=== PATIENT | female | born 1980 | race Caucasian/White ===

== ENCOUNTER → 2016-07-22 | Outpatient (CLI) | payer BC ==
[2016-07-22 15:25] LABS: CH 29.8; CHCM 31.8; HCT 42.4 % (34.0-46.0); HDW 1.92; HGB 13.5 gm/dL (11.4-16.0); MCH 29.9 pg (25.0-35.0); MCHC 31.8 g/dL (31.0-37.0); Mean Platelet Volume 6.1; RBC 4.51 m/uL (3.80-5.40); RDW 12.1 % (11.5-15.5); WBC 12.6 k/uL (3.8-10.6)
[2016-07-22 15:41] LABS: Prothrombin Time 10.1 sec (9.0-12.0)
[2016-07-22 15:57] LABS: Partial Thromboplastin Time 190.8 sec (22.0-30.0)
== END | disposition home or self-care (01) ==
LOC: LABWHC1 14:37
PROVIDERS: ATTEND Orthopaedic Surgery Orthopaedic Surgery of the Spine
DX: M48.02 Spinal stenosis, cervical region (principal)
CPT/HCPCS: 36415; 85027; 85610; 85730

== ENCOUNTER → 2018-06-01 | Outpatient (CLI) | payer BC ==
--- NOTE | 2018-06-01 13:42 | US ---
EXAMINATION TYPE: US kidneys/renal and bladder DATE OF EXAM: 06/01/2018 COMPARISON: NONE CLINICAL HISTORY: R10.9 ABD PAIN. EXAM MEASUREMENTS: Right Kidney: 11.7 x 5.1 x 4.5 cm Left Kidney: 12.3 x 5.5 x 5.1 cm Post Void Residual Volume: 11.3 mL Right Kidney: No hydronephrosis or masses seen Left Kidney: No hydronephrosis or masses seen Bladder: wnl Bilateral Jets seen: Yes Normal Post Void Residual: Yes There is no evidence for hydronephrosis at this point in time. No nephrolithiasis is seen. No merlyn s are identified. The urinary bladder is anechoic. Bilateral ureteral jets are seen. ? accessory spleen noted = 1.3 x 1.3 x 1.3 cm IMPRESSION: No significant abnormality appreciated. report given to James at office at time of exam.
== END | disposition home or self-care (01) ==
LOC: RADUSWWP 12:49
PROVIDERS: ATTEND Family Medicine
DX: R10.9 Unspecified abdominal pain (principal)
CPT/HCPCS: 76770

== ENCOUNTER 2018-06-07 07:08 | Emergency (ER) | payer BC ==
[2018-06-07 07:14] VITALS: RESP 20
[2018-06-07 07:40] LABS: Appearance,Urine Cloudy (Clear); Bacteria,Urine Moderate /hpf; Bilirubin,Urine Negative (Negative); Blood,Urine Trace (Negative); Color,Urine Yellow; Glucose,Urine (UA) Negative (Negative); Ketones,Urine Negative (Negative); Leukocyte Esterase,Urine Moderate (Negative); Mucus,Urine Moderate /hpf; Nitrite,Urine Negative (Negative); PH, Urine 6.5 (5.0-8.0); Protein,Urine 1+ (Negative); RBC,Urine 5 /hpf (0-5); Specific Gravity,Urine 1.017 (1.001-1.035); Squamous Epithelial Cell,Urine 10 /hpf (0-4); Urobilinogen,Urine <2.0 mg/dL (<2.0)
[2018-06-07] MEDS ORDERED: SODIUM CHLORIDE 0.9% 1,000 ML IV STA (07:46)
[2018-06-07] MEDS ORDERED: ONDANSETRON 4 MG/2 ML VIAL IVP STA (07:46)
[2018-06-07] MEDS ORDERED: MORPHINE SULFATE 4 MG/ML SYRINGE IV STA (07:46)
--- NOTE | 2018-06-07 08:03 | ED ---
Abdominal Pain HPI - General Chief Complaint: Back Pain/Injury Stated Complaint: back pain Time Seen by Provider: 06/07/18 07:43 Source: patient, RN notes reviewed, old records reviewed Mode of arrival: ambulatory Limitations: no limitations - History of Present Illness Initial Comments: This is a 37-year-old female the ER for evaluation of right-sided back pain right flank pain. Denies significant medical history no change in medications. Patient has no modifying factors for pain at home. Denies history of kidney stone, was recently seen by family doctor for similar complaint is that she had a recent ultrasound unknown results. Patient denies dysuria positive urine, no fevers. No nausea vomiting or diarrhea. Just pain in the back. Otherwise patient has no new complaints. No prior history of similar complaint MD Complaint: flank pain (Right) -: week(s) Location: RLQ, R flank Radiation: R flank Migration to: no migration Severity: moderate Severity scale (1-10): 3 Quality: cramping, sharp Consistency: constant Improves With: nothing Worsens With: nothing Associated Symptoms: nausea Treatments Prior to Arrival: NSAIDs - Related Data Home Medications Medication Instructions Recorded Confirmed Ibuprofen [Motrin] 800 mg PO Q6H PRN 06/07/18 06/07/18 Medroxyprogesterone Acetate 150 mg IM Q90D 06/07/18 06/07/18 [Depo-Provera] Allergies Allergy/AdvReac Type Severity Reaction Status Date / Time prochlorperazine Allergy Anaphylaxis Verified 06/07/18 07:33 [From Compazine] Review of Systems ROS Statement: Those systems with pertinent positive or pertinent negative responses have been documented in the HPI. ROS Other: All systems not noted in ROS Statement are negative. Past Medical History Past Medical History: No Reported History History of Any Multi-Drug Resistant Organisms: None Reported Past Surgical History: Section, Orthopedic Surgery Additional Past Surgical History / Comment(s): neck surgery 2016 Past Psychological History: Anxiety Smoking Status: Current every day smoker Past Alcohol Use History: Occasional Past Drug Use History: None Reported General Exam Limitations: no limitations General appearance: alert, in no apparent distress Head exam: Present: atraumatic, normocephalic, normal inspection Eye exam: Present: normal appearance, PERRL, EOMI. Absent: scleral icterus, conjunctival injection, periorbital swelling ENT exam: Present: normal exam, mucous membranes moist Neck exam: Present: normal inspection. Absent: tenderness, meningismus, lymphadenopathy Respiratory exam: Present: normal lung sounds bilaterally. Absent: respiratory distress, wheezes, rales, rhonchi, stridor Cardiovascular Exam: Present: regular rate, normal rhythm, normal heart sounds. Absent: systolic murmur, diastolic murmur, rubs, gallop, clicks GI/Abdominal exam: Present: soft, normal bowel sounds. Absent: distended, tenderness, guarding, rebound, rigid Extremities exam: Present: normal inspection, full ROM, normal capillary refill. Absent: tenderness, pedal edema, joint swelling, calf tenderness Back exam: Present: normal inspection Neurological exam: Present: alert, oriented X3, CN II-XII intact Psychiatric exam: Present: normal affect, normal mood Skin exam: Present: warm, dry, intact, normal color. Absent: rash Course Vital Signs 06/07/18 07:12 Temperature 98.5 F Pulse Rate 102 H Respiratory 20 Rate Blood Pressure 132/90 O2 Sat by Pulse 98 Oximetry - Reevaluation(s) Reevaluation #1: 06/07/18 09:34 Medical record and previous ultrasound are reviewed, negative Reevaluation #2: 06/07/18 09:34 Patient feeling better, informed her results. Patient continue follow-up as an outpatient basis for symptomatically treatment Medical Decision Making - Medical Decision Making 29 female the ER with nonspecific right flank pain, no injury no back injury CT is negative for acute disease labwork is normal patient can be discharged home - Lab Data Result diagrams: 06/07/18 07:55 06/07/18 07:55 Lab Results 06/07/18 06/07/18 06/07/18 Range/Units 07:20 07:20 07:55 WBC (3.8-10.6) k/uL RBC (3.80-5.40) m/uL Hgb (11.4-16.0) gm/dL Hct (34.0-46.0) % MCV (80.0-100.0) fL MCH (25.0-35.0) pg MCHC (31.0-37.0) g/dL RDW (11.5-15.5) % Plt Count (150-450) k/uL Neutrophils % % Lymphocytes % % Monocytes % % Eosinophils % % Basophils % % Neutrophils # (1.3-7.7) k/uL Lymphocytes # (1.0-4.8) k/uL Monocytes # (0-1.0) k/uL Eosinophils # (0-0.7) k/uL Basophils # (0-0.2) k/uL Sodium 140 (137-145) mmol/L Potassium 4.8 (3.5-5.1) mmol/L Chloride 113 H (98-107) mmol/L Carbon Dioxide 20 L (22-30) mmol/L Anion Gap 7 mmol/L BUN 11 (7-17) mg/dL Creatinine 0.62 (0.52-1.04) mg/dL Est GFR (CKD-EPI)AfAm >90 (>60 ml/min/1.73 sqM) Est GFR (CKD-EPI)NonAf >90 (>60 ml/min/1.73 sqM) Glucose 88 (74-99) mg/dL Calcium 8.9 (8.4-10.2) mg/dL Total Bilirubin 0.7 (0.2-1.3) mg/dL AST 25 (14-36) U/L ALT 19 (9-52) U/L Alkaline Phosphatase 42 (38-126) U/L Total Protein 6.9 (6.3-8.2) g/dL Albumin 4.0 (3.5-5.0) g/dL Amylase 47 (30-110) U/L Lipase 78 (23-300) U/L Urine Color Yellow Urine Appearance Cloudy H (Clear) Urine pH 6.5 (5.0-8.0) Ur Specific [place] 1.017 (1.001-1.035) Urine Protein 1+ H (Negative) Urine Glucose (UA) Negative (Negative) Urine Ketones Negative (Negative) Urine Blood Trace H (Negative) Urine Nitrite Negative (Negative) Urine Bilirubin Negative (Negative) Urine Urobilinogen <2.0 (<2.0) mg/dL Ur Leukocyte Esterase Moderate H (Negative) Urine RBC 5 (0-5) /hpf Urine WBC 8 H (0-5) /hpf Ur Squamous Epith Cells 10 H (0-4) /hpf Urine Bacteria Moderate H (None) /hpf Urine Mucus Moderate H (None) /hpf Urine HCG, Qual Not Detected (Not Detectd) 06/07/18 Range/Units 07:55 WBC 10.0 (3.8-10.6) k/uL RBC 4.92 (3.80-5.40) m/uL Hgb 14.5 (11.4-16.0) gm/dL Hct 44.3 (34.0-46.0) % MCV 90.0 (80.0-100.0) fL MCH 29.5 (25.0-35.0) pg MCHC 32.8 (31.0-37.0) g/dL RDW 12.3 (11.5-15.5) % Plt Count 353 (150-450) k/uL Neutrophils % 63 % Lymphocytes % 29 % Monocytes % 4 % Eosinophils % 2 % Basophils % 1 % Neutrophils # 6.3 (1.3-7.7) k/uL Lymphocytes # 2.9 (1.0-4.8) k/uL Monocytes # 0.4 (0-1.0) k/uL Eosinophils # 0.2 (0-0.7) k/uL Basophils # 0.1 (0-0.2) k/uL Sodium (137-145) mmol/L Potassium (3.5-5.1) mmol/L Chloride (98-107) mmol/L Carbon Dioxide (22-30) mmol/L Anion Gap mmol/L BUN (7-17) mg/dL Creatinine (0.52-1.04) mg/dL Est GFR (CKD-EPI)AfAm (>60 ml/min/1.73 sqM) Est GFR (CKD-EPI)NonAf (>60 ml/min/1.73 sqM) Glucose (74-99) mg/dL Calcium (8.4-10.2) mg/dL Total Bilirubin (0.2-1.3) mg/dL AST (14-36) U/L ALT (9-52) U/L Alkaline Phosphatase (38-126) U/L Total Protein (6.3-8.2) g/dL Albumin (3.5-5.0) g/dL Amylase (30-110) U/L Lipase (23-300) U/L Urine Color Urine Appearance (Clear) Urine pH (5.0-8.0) Ur Specific [place] (1.001-1.035) Urine Protein (Negative) Urine Glucose (UA) (Negative) Urine Ketones (Negative) Urine Blood (Negative) Urine Nitrite (Negative) Urine Bilirubin (Negative) Urine Urobilinogen (<2.0) mg/dL Ur Leukocyte Esterase (Negative) Urine RBC (0-5) /hpf Urine WBC (0-5) /hpf Ur Squamous Epith Cells (0-4) /hpf Urine Bacteria (None) /hpf Urine Mucus (None) /hpf Urine HCG, Qual (Not Detectd) - Radiology Data Radiology results: report reviewed (CT abdomen pelvis negative for acute disease ), image reviewed Disposition Clinical Impression: Mid back pain, Right flank pain Disposition: HOME SELF-CARE Condition: Good Instructions: Acute Low Back Pain (ED) Is patient prescribed a controlled substance at d/c from ED?: No Referrals: Anurag Bishop MD [Primary Care Provider] - 1-2 days
[2018-06-07 08:17] LABS: Basophils # (A) 0.1 k/uL (0-0.2); Basophils % (A) 1 %; Eosinophils # (A) 0.2 k/uL (0-0.7); Eosinophils % (A) 2 %; HCT 44.3 % (34.0-46.0); HGB 14.5 gm/dL (11.4-16.0); Lymphocytes # (A) 2.9 k/uL (1.0-4.8); Lymphocytes % (A) 29 %; MCH 29.5 pg (25.0-35.0); MCHC 32.8 g/dL (31.0-37.0); Mean Platelet Volume 6.3; Monocytes # (A) 0.4 k/uL (0-1.0); Monocytes % (A) 4 %; Neutrophils # (A) 6.3 k/uL (1.3-7.7); Neutrophils % (A) 63 %; Platelet Count 353 k/uL (150-450); RBC 4.92 m/uL (3.80-5.40); RDW 12.3 % (11.5-15.5)
[2018-06-07 08:49] LABS: Amylase 47 U/L (30-110); Anion Gap 7 mmol/L; Blood Urea Nitrogen 11 mg/dL (7-17); Calcium 8.9 mg/dL (8.4-10.2); Carbon Dioxide 20 mmol/L (22-30); Chloride 113 mmol/L (98-107); Glucose 88 mg/dL (74-99); Lipase 78 U/L (23-300); Sodium 140 mmol/L (137-145); Total Bilirubin 0.7 mg/dL (0.2-1.3); Total Protein 6.9 g/dL (6.3-8.2)
[2018-06-07 08:52] LABS: ALT 19 U/L (9-52); AST 25 U/L (14-36); Alkaline Phosphatase 42 U/L (38-126); Potassium 4.8 mmol/L (3.5-5.1)
--- NOTE | 2018-06-07 09:08 | CT ---
EXAMINATION TYPE: CT abdomen pelvis wo con DATE OF EXAM: 06/07/2018 COMPARISON: 02/26/2015 HISTORY: Right side back pain. CT DLP: 724 mGycm Examination of the solid and hollow viscera is limited given the lack of contrast. FINDINGS: LUNG BASES: No evidence for nodule. No evidence for infiltrate. LIVER/GB: The gallbladder is unremarkable. No space-occupying hepatic lesion. PANCREAS: No pancreatic mass identified. No inflammatory process seen. SPLEEN: No evidence for splenomegaly. No intrasplenic lesions seen. ADRENALS: No adrenal nodules identified. No evidence for thickening. KIDNEYS: No evidence for renal mass. Nonobstructing calculus upper pole left kidney measuring 3 mm. BOWEL: Appendix has a normal appearance. No evidence of bowel obstruction. No inflammatory process. Lymph nodes: No evidence for adenopathy greater than 1 cm. Abdominal aorta: Atheromatous changes seen. No evidence for aneurysm. Genital organs: No significant abnormality. Other: No significant abnormality. IMPRESSION: 1. Nonobstructing calculus left kidney.
[2018-06-07 10:13] VITALS: TEMP 98
[2018-06-07] MEDS ORDERED: KETOROLAC 30 MG/ML 1 ML VIAL IVP STA (10:17)
[2018-06-07] MEDS ORDERED: MORPHINE SULFATE 4 MG/ML SYRINGE IVP STA (10:17)
--- NOTE | 2018-06-07 11:15 | US ---
EXAMINATION TYPE: US gallbladder DATE OF EXAM: 06/07/2018 COMPARISON: CT CLINICAL HISTORY: Pain. Right Flank Pain x 2 weeks; nonobstructing left renal calculus per CT today EXAM MEASUREMENTS: Liver Length: Under represented on ultrasound measurement. Liver is enlarged. Gallbladder Wall: 0.1 cm CBD: 0.4 cm Right Kidney: 11.4 x 4.9 x 3.8 cm Pancreas: tail is obscured by overlying bowel gas Liver: Increased attenuation posterior right lobe Gallbladder: wnl Evidence for sonographic Scott's sign: no CBD: wnl Right Kidney: No hydronephrosis or masses seen There is no ascites. IMPRESSION: There may be underlying hepatocellular disease, hepatic steatosis, hepatomegaly.
[2018-06-07 11:45] VITALS: BP 132/66; PULSE 84
== END 2018-06-07 11:45 | disposition home or self-care (01) ==
LOC: EC 07:08
DX: R10.31 Right lower quadrant pain (principal); M54.9 Dorsalgia, unspecified; R11.0 Nausea; F17.200 Nicotine dependence, unspecified, uncomplicated; Z88.8 Allergy status to other drugs, medicaments and biological substances; Z79.3 Long term (current) use of hormonal contraceptives
CPT/HCPCS: 36415; 80053; 82150; 83690; 85025; 81001; 81025; 87086; 76705; 74176; 99284; 96374; 96375 ×2; 96376; J2270; J2405; J1885

== ENCOUNTER → 2018-06-08 | Outpatient (CLI) | payer BC ==
--- NOTE | 2018-06-08 11:00 | CT ---
EXAMINATION TYPE: CT chest w con DATE OF EXAM: 06/08/2018 COMPARISON: None HISTORY: 37-year-old female pleurisy, Right back pain x 2 weeks. TECHNIQUE: Contiguous axial scanning of the chest after the administration of 100 mL of Isovue M300. Coronal/sagittal reconstructions performed. CT DLP: 388.3mGycm. Automatic exposure control utilized for a dose reduction. FINDINGS: Heart normal size without pericardial effusion. Mild coronary vessel calcifications are seen. Aorta normal caliber with conventional contrast branching anatomy. Some mild thymic tissue is noted along the anterior mediastinum. Evaluation of the lungs shows no consolidation or pleural effusion. Some stranding atelectasis at the inferior lingula and basilar right middle lobe and peripheral right base. Tiny hiatal hernia. Visualized upper abdomen otherwise shows no gross abnormal value. Bones: Mild degenerative disc disease lower thoracic spine. IMPRESSION: 1. Mild thymic hyperplasia. 2. Tiny hiatal hernia. 3. Mild LAD calcifications. 4. No acute pulmonary process.
== END | disposition home or self-care (01) ==
LOC: RADCTMAIN 10:28
PROVIDERS: ATTEND Family Medicine
DX: E32.0 Persistent hyperplasia of thymus (principal); K44.9 Diaphragmatic hernia without obstruction or gangrene
CPT/HCPCS: 71260; Q9967

== ENCOUNTER 2020-12-10 19:59 | Emergency (ER) | payer BC ==
[2020-12-10 20:06] VITALS: BP 144/94; PULSE 83; RESP 18; TEMP 98
[2020-12-10] MEDS ORDERED: predniSONE 20 MG TAB PO STA (21:21)
[2020-12-10] MEDS ORDERED: KETOROLAC 15 MG/ML 1 ML VIAL IM STA (21:21)
[2020-12-10] MEDS ORDERED: DIAZEPAM 5 MG/ML 2 ML INJ IM ONE (21:22)
--- NOTE | 2020-12-10 21:23 | ED ---
Back Pain HPI - General Chief Complaint: Back Pain/Injury Stated Complaint: ABD pain Time Seen by Provider: 12/10/20 21:02 Source: patient, family Limitations: no limitations - History of Present Illness Initial Comments: This patient is a 40-year-old woman who presents with left-sided thoracic back pain after she had a chiropractic manipulation. Patient denies any neurologic symptoms. She is not having any radiculopathy type symptoms, contrary to the triage note. No change in bladder or bowel function. No saddle anesthesia. No arm symptoms. MD Complaint: back pain -: hour(s) Similar Symptoms Previously: No Place: other (Chiropractor's office) Radiation: none Severity: moderate Quality: aching Consistency: constant Improves With: none Worsens With: movement Context: other (After chiropractor appointment) Associated Symptoms: denies other symptoms Treatments Prior to Arrival: cold therapy - Related Data Home Medications Medication Instructions Recorded Confirmed Ibuprofen [Motrin] 800 mg PO Q6H PRN 06/07/18 06/07/18 Medroxyprogesterone Acetate 150 mg IM Q90D 06/07/18 06/07/18 [Depo-Provera] Previous Rx's Medication Instructions Recorded Ibuprofen 800 mg PO TID #20 tablet 12/10/20 Methocarbamol [Robaxin-750] 750 mg PO TID PRN #30 tablet 12/10/20 Allergies Allergy/AdvReac Type Severity Reaction Status Date / Time prochlorperazine Allergy Anaphylaxis Verified 12/10/20 20:06 [From Compazine] Review of Systems ROS Statement: Those systems with pertinent positive or pertinent negative responses have been documented in the HPI. ROS Other: All systems not noted in ROS Statement are negative. Constitutional: Denies: fever, chills Respiratory: Denies: cough, dyspnea Cardiovascular: Denies: chest pain, palpitations, edema Gastrointestinal: Denies: abdominal pain, nausea, vomiting, diarrhea Genitourinary: Denies: dysuria, frequency, hematuria Musculoskeletal: Reports: as per HPI, back pain Skin: Denies: rash Neurological: Denies: headache, weakness, numbness Past Medical History Past Medical History: No Reported History Additional Past Medical History / Comment(s): chronic back pain History of Any Multi-Drug Resistant Organisms: None Reported Past Surgical History: Section, Orthopedic Surgery Additional Past Surgical History / Comment(s): neck surgery 2016 Past Psychological History: Anxiety Smoking Status: Current every day smoker Past Alcohol Use History: Occasional Past Drug Use History: None Reported General Exam Limitations: no limitations General appearance: alert, in no apparent distress Head exam: Present: atraumatic, normocephalic Respiratory exam: Present: normal lung sounds bilaterally. Absent: respiratory distress, wheezes, rales, rhonchi, stridor Cardiovascular Exam: Present: regular rate, normal rhythm, normal heart sounds. Absent: systolic murmur, diastolic murmur, rubs, gallop GI/Abdominal exam: Present: soft. Absent: distended, tenderness, guarding, rebound Back exam: Present: normal inspection, tenderness, muscle spasm ((Back), paraspinal tenderness. Absent: CVA tenderness (R), CVA tenderness (L), vertebral tenderness Neurological exam: Present: alert. Absent: motor sensory deficit Skin exam: Present: warm, dry, intact, normal color. Absent: rash Course Vital Signs 12/10/20 20:03 Temperature 98 F Pulse Rate 83 Respiratory 18 Rate Blood Pressure 144/94 O2 Sat by Pulse 98 Oximetry Medical Decision Making - Medical Decision Making Patient has had good relief of symptoms following medication and would like to go home. We discussed appropriate further care and follow-up as well as return parameters. Disposition Clinical Impression: Back muscle spasm Disposition: HOME SELF-CARE Condition: Good Instructions (If sedation given, give patient instructions): Muscle Spasm (ED) Prescriptions: Ibuprofen 800 mg PO TID #20 tablet Methocarbamol [Robaxin-750] 750 mg PO TID PRN #30 tablet PRN Reason: pain Is patient prescribed a controlled substance at d/c from ED?: No Referrals: Anurag Bishop MD [Primary Care Provider] - 1-2 days
== END 2020-12-10 22:52 | disposition home or self-care (01) ==
LOC: EC 19:59
DX: M62.830 Muscle spasm of back (principal); R10.9 Unspecified abdominal pain; F17.200 Nicotine dependence, unspecified, uncomplicated; Z88.8 Allergy status to other drugs, medicaments and biological substances
CPT/HCPCS: 99283; 96372 ×2; J3360; J1885; J7512

== ENCOUNTER → 2020-12-10 | Outpatient (CLI) | payer BC | END | disposition home or self-care (01) | CPT/HCPCS: 77067; 77080 ==

== ENCOUNTER → 2020-12-25 | Outpatient (CLI) | payer BC ==
--- NOTE | 2020-12-25 11:43 | USB ---
EXAMINATION TYPE: US breast workup limited RT DATE OF EXAM: 12/25/2020 COMPARISON: Mammogram same date CLINICAL HISTORY: R92.8 abnormal mammogram. Findings: Right breast targeted ultrasound was performed from 4-7 o'clock and in the retroareolar region and ax illa. In the right breast at 6:00, there is a 0.6 x 0.5 x 0.3 cm cluster of cysts which corresponds w ell in size, location and morphology to the asymmetry on mammogram and is benign. IMPRESSION: No sonographic evidence for malignancy. BI-RADS 2, benign.
--- NOTE | 2020-12-25 13:53 | MM ---
Reason for exam: additional evaluation requested from abnormal screening. Last mammogram was performed less than 1 month ago. History: Taking hormonal contraceptives for 9 years. Physical Findings: Nurse did not find any significant physical abnormalities on exam. MG 3D Work Up W/Cad HEMANT Bilateral spot compression CC, spot compression MLO, and LM view(s) were taken. Prior study comparison: December 10, 2020, bilateral MG screening mammo w CAD. There are scattered fibroglandular densities. There is a persistent asymmetry in retro right breast at approximately 6 o'clock and ultrasound is recommended. Left asymmetry is pliable and presumably represented overlapping normal tissue. These results were verbally communicated with the patient and result sheet given to the patient on 12/25/20. ASSESSMENT: Incomplete: need additional imaging evaluation, BI-RAD 0 RECOMMENDATION: Ultrasound of the right breast.
== END | disposition home or self-care (01) ==
LOC: RADMAMWWP 10:08
PROVIDERS: ATTEND Obstetrics & Gynecology
DX: R92.8 Other abnormal and inconclusive findings on diagnostic imaging of breast (principal); N63.21 Unspecified lump in the left breast, upper outer quadrant; N63.13 Unspecified lump in the right breast, lower outer quadrant
CPT/HCPCS: 77062; 77066

== ENCOUNTER → 2024-09-18 | Outpatient (CLI) | payer BC ==
--- NOTE | 2024-09-18 11:44 | US ---
EXAMINATION TYPE: US abdomen complete DATE OF EXAM: 09/18/2024 COMPARISON: NONE CLINICAL INDICATION: Female, 43 years old with history of R10.11 RIGHT UPPER QUADRANT PAIN; RUQ pain, nausea/vomiting TECHNIQUE: Grayscale and color Doppler imaging of the abdomen was performed. FINDINGS: EXAM MEASUREMENTS: Liver Length: 19.0 cm Gallbladder Wall: 0.2 cm CBD: 0.4 cm, color Doppler imaging was utilized to isolate the common bile duct for measurement. 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 Hepatomegaly. 2. Suspected nonobstructing right renal stone [facility], , 09/18/2024 11:41 AM
== END | disposition home or self-care (01) ==
LOC: RADUSWWP 09:56
PROVIDERS: ATTEND Emergency Medicine
DX: R16.0 Hepatomegaly, not elsewhere classified (principal)
CPT/HCPCS: 76700